=== PATIENT | female | born 2005 | race Caucasian/White ===

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

== ENCOUNTER 2023-08-21 10:12 | Emergency (ER) | payer OTHER ==
--- NOTE | 2023-08-21 10:44 | ED ---
Lower Extremity Injury HPI - General Chief Complaint: Extremity Injury, Lower Stated Complaint: right foot pain Time Seen by Provider: 08/21/23 10:27 Source: patient, RN notes reviewed Mode of arrival: wheelchair Limitations: no limitations - History of Present Illness Initial Comments: Patient is a 18-year-old female presented ER with chief complaint of right foot injury. Patient states she kicked a dumpster earlier today and his indoors pain since. Patient reports mild tingling in her toes. Patient states it is extremely painful to bear weight or walk. Patient denies any other injuries. - Related Data Previous Rx's Medication Instructions Recorded DULoxetine HCL [Cymbalta] 60 mg PO HS 30 Days #30 cap 06/15/23 Mirtazapine [Remeron] 30 mg PO HS 30 Days #60 tab 06/15/23 hydrOXYzine pamoate [Vistaril] 25 mg PO BID PRN 30 Days #60 cap 06/15/23 Allergies Allergy/AdvReac Type Severity Reaction Status Date / Time scopolamine Allergy Severe Unknown Verified 08/21/23 10:19 pentamidine isethionate Allergy Itching Verified 08/21/23 10:19 Review of Systems ROS Statement: Those systems with pertinent positive or pertinent negative responses have been documented in the HPI. ROS Other: All systems not noted in ROS Statement are negative. Past Medical History Past Medical History: Blood Disorder, Skin Disorder Additional Past Medical History / Comment(s): Hx Covid 10/13/21 with fever, body aches, chills, sore throat and cough. Hx frequent abdominal pain, IBS symptoms, less frequent recently. Eczema. 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 History of Any Multi-Drug Resistant Organisms: None Reported Past Surgical History: No Surgical Hx Reported Additional Past Surgical History / Comment(s): Bone Marrow Biopsy X4. Past Anesthesia/Blood Transfusion Reactions: No Reported Reaction, Motion Sickness Additional Past Anesthesia/Blood Transfusion Reaction / Comment(s): Hx platelet transfusions X2 in 2018, no problems. Past Psychological History: Anxiety, Depression Smoking Status: Never smoker Past Alcohol Use History: None Reported Past Drug Use History: None Reported - Past Family History Mother Family Medical History: No Reported History General Exam Limitations: no limitations General appearance: alert, in no apparent distress Respiratory exam: Present: normal lung sounds bilaterally. Absent: respiratory distress, wheezes, rales, rhonchi, stridor Cardiovascular Exam: Present: regular rate, normal rhythm, normal heart sounds. Absent: systolic murmur, diastolic murmur, rubs, gallop, clicks Extremities exam: Present: other (Edema noted to the right foot. No ecchymosis, erythema, or abrasions noted. tenderness to right 3 and 4 metatarsal. 2+ right dorsalis pedis pulse) Neurological exam: Present: alert, oriented X3, CN II-XII intact Psychiatric exam: Present: normal affect, normal mood Skin exam: Present: warm, dry, intact, normal color. Absent: rash Course Vital Signs 08/21/23 10:15 Temperature 98.4 F Pulse Rate 124 H Respiratory 18 Rate Blood Pressure 117/81 O2 Sat by Pulse 97 Oximetry Medical Decision Making - Medical Decision Making Was pt. sent in by a medical professional or institution (TERRIE Forrest, ANNUAL CAMPAIGN MANAGER, urgent care, hospital, or shelter...) When possible be specific @ -No Did you speak to anyone other than the patient for history (EMS, parent, family, police, friend...)? What history was obtained from this source @ -No Did you review nursing and triage notes (agree or disagree)? Why? @ -I reviewed and agree with nursing and triage notes Were old charts reviewed (outside hosp., previous admission, EMS record, old EKG, old radiological studies, urgent care reports/EKG's, shelter records)? Report findings @ -No old charts were reviewed Differential Diagnosis (chest pain, altered mental status, abdominal pain women, abdominal pain men, vaginal bleeding, weakness, fever, dyspnea, syncope, headache, dizziness, GI bleed, back pain, seizure, CVA, palpatations, mental health, musculoskeletal)? @ -Differential Musculoskeletal: Muscular strain, contusion, ligament sprain, fracture, arthritis, septic arthritis, bursitis, cellulitis, muscle spasm, nerve compression, DVT, arterial occlusion, herpes zoster, electrolyte abnormality, tumor.... This is not meant to be in all inclusive list EKG interpreted by me (3pts min.). @ -None X-rays interpreted by me (1pt min.). @ -Right foot x-ray shows no acute fractures or dislocations. CT interpreted by me (1pt min.). @ -None done U/S interpreted by me (1pt. min.). @ -None done What testing was considered but not performed or refused? (CT, X-rays, U/S, labs)? Why? @ -None What meds were considered but not given or refused? Why? @ -Yes I offered patient pain medications patient denied. Did you discuss the management of the patient with other professionals (professionals i.e. Dr., PA, ANNUAL CAMPAIGN MANAGER, lab, RT, psych nurse, oncology social work, ict sales representative, teacher, training and development officer, patient case manager)? Give summary @ -No Was smoking cessation discussed for >3mins.? @ -No Was critical care preformed (if so, how long)? @ -No Were there social determinants of health that impacted care today? How? (Homelessness, low income, unemployed, alcoholism, drug addiction, transportation, low edu. Level, literacy, decrease access to med. care, long term, rehab)? @ -No Was there de-escalation of care discussed even if they declined (Discuss DNR or withdrawal of care, Hospice)? DNR status @ -No What co-morbidities impacted this encounter? (DM, HTN, Smoking, COPD, CAD, Cancer, CVA, ARF, Chemo, Hep., AIDS, mental health diagnosis, sleep apnea, morbid obesity)? @ -None Was patient admitted / discharged? Hospital course, mention meds given and route , prescriptions, significant lab abnormalities, going to OR and other pertinent info. @ -Discharge. Patient is 18-year-old female presented ER chief complaint of right foot injury. On examination, patient tenderness to the third and fourth metatarsal with mild edema. There is no ecchymosis, erythema or abrasions noted. 2+ right dorsalis pedis pulse. X-ray of right foot showed no acute fractures or dislocations. Patient's foot will be wrapped with an David bandage upon discharge. I discussed with the patient to rest, ice, use compression, elevate foot. Return parameters were discussed. I advised patient to follow-up with orthopedics if symptoms persist longer than 7-10 days. Patient was discharged in stable condition with follow-up to PCP. She expressed understanding and agreement with care plan. Undiagnosed new problem with uncertain prognosis? @ -No Drug Therapy requiring intensive monitoring for toxicity (Heparin, Nitro, Insulin, Cardizem)? @ -No Were any procedures done? @ -No Diagnosis/symptom? @ -Right foot contusion Acute, or Chronic, or Acute on Chronic? @ -Acute Uncomplicated (without systemic symptoms) or Complicated (systemic symptoms)? @ -Uncomplicated Side effects of treatment? @ -No Exacerbation, Progression, or Severe Exacerbation? @ -No Poses a threat to life or bodily function? How? (Chest pain, [place], [place], pneumonia, PE, COPD, DKA, ARF, appy, cholecystitis, CVA, Diverticulitis, Homicidal, Suicidal, threat to staff... and all critical care pts) @ -No - Radiology Data Radiology results: report reviewed, image reviewed Disposition Clinical Impression: Contusion of right foot Disposition: HOME SELF-CARE Condition: Stable Instructions (If sedation given, give patient instructions): Foot Sprain (ED) Additional Instructions: Please return to the Emergency Department if symptoms worsen or any other concerns. Please use [id number] Tylenol and Motrin for pain control. Is patient prescribed a controlled substance at d/c from ED?: No Referrals: Joey Cordova MD [Primary Care Provider] - 1-2 days Yoel Vogel MD [STAFF PHYSICIAN] - 1-2 days Time of Disposition: 11:20
--- NOTE | 2023-08-21 10:57 | XR ---
EXAMINATION TYPE: XR foot complete RT DATE OF EXAM: 08/21/2023 COMPARISON: NONE HISTORY: Pain TECHNIQUE: Three views are submitted. FINDINGS: The osseous structures are intact. There is no acute fracture or dislocation. Joint spaces are p reserved. Chronic appearing deformity dorsal surface of the tarsal navicular. IMPRESSION: 1. No acute fracture or dislocation. If symptoms persist, follow-up exam in 7 to 10 days could be ob tained.
[2023-08-21 11:01] VITALS: RESP 18
[2023-08-21 11:51] VITALS: BP 115/79; PULSE 104; TEMP 98.1
== END 2023-08-21 11:41 | disposition home or self-care (01) ==
LOC: EC 10:12
DX: S90.31XA Contusion of right foot, initial encounter (principal); Z86.59 Personal history of other mental and behavioral disorders; W50.1XXA Accidental kick by another person, initial encounter
CPT/HCPCS: 99283

== ENCOUNTER 2023-09-27 10:19 | Emergency (ER) | payer OTHER ==
[2023-09-27 11:11] VITALS: BP 128/81; PULSE 98; RESP 18; TEMP 98.5
[2023-09-27] MEDS ORDERED: ACETAMINOPHEN TAB 325 MG TAB PO STA (11:19)
--- NOTE | 2023-09-27 11:24 | ED ---
General Adult HPI <Gayle Harrison - Last Filed: 09/27/23 15:12> - General Source: patient, RN notes reviewed Mode of arrival: ambulatory Limitations: no limitations <Kristen Barrett - Last Filed: 10/02/23 18:13> - General Chief complaint: Nausea/Vomiting/Diarrhea Stated complaint: chills and body aches Time Seen by Provider: 09/27/23 11:23 - History of Present Illness Initial comments: 18-year-old female presented ER with chief complaint of myalgias and chills. Patient states this going on for about a month. Patient denies any known fevers (Kristen Barrett) - Related Data Previous Rx's Medication Instructions Recorded DULoxetine HCL [Cymbalta] 60 mg PO HS 30 Days #30 cap 06/15/23 Mirtazapine [Remeron] 30 mg PO HS 30 Days #60 tab 06/15/23 hydrOXYzine pamoate [Vistaril] 25 mg PO BID PRN 30 Days #60 cap 06/15/23 Allergies Allergy/AdvReac Type Severity Reaction Status Date / Time scopolamine Allergy Severe Unknown Verified 09/27/23 10:56 pentamidine isethionate Allergy Itching Verified 09/27/23 10:56 Review of Systems ROS Other: All systems not noted in ROS Statement are negative. <Gayle Harrison - Last Filed: 09/27/23 15:12> ROS Other: All systems not noted in ROS Statement are negative. <Kristen Barrett - Last Filed: 10/02/23 18:13> ROS Statement: Those systems with pertinent positive or pertinent negative responses have been documented in the HPI. Past Medical History Past Medical History: Blood Disorder, Skin Disorder Additional Past Medical History / Comment(s): Hx Covid 10/13/21 with fever, body aches, chills, sore throat and cough. Hx frequent abdominal pain, IBS symptoms, less frequent recently. Eczema. 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 History of Any Multi-Drug Resistant Organisms: None Reported Past Surgical History: No Surgical Hx Reported Additional Past Surgical History / Comment(s): Bone Marrow Biopsy X4. Past Anesthesia/Blood Transfusion Reactions: No Reported Reaction, Motion Sickness Additional Past Anesthesia/Blood Transfusion Reaction / Comment(s): Hx platelet transfusions X2 in 2018, no problems. Past Psychological History: Anxiety, Depression Smoking Status: Never smoker Past Alcohol Use History: None Reported Past Drug Use History: None Reported - Past Family History Mother Family Medical History: No Reported History <Kristen Barrett - Last Filed: 10/02/23 18:13> General Exam Limitations: no limitations <Kristen Barrett - Last Filed: 10/02/23 18:13> - General Exam Comments Initial Comments: Visual Physical Exam Vital signs reviewed General: Well-appearing, nontoxic, no acute distress. Head: Normocephalic, atraumatic Eyes: PERRLA, EOMI ENT: Airway patent Chest: Nonlabored breathing Skin: No visual rash, normal skin tone Neuro: Alert and oriented 3 Musculoskeletal: No gross abnormalities (Kristen Barrett) Course Vital Signs 09/27/23 10:54 Temperature 98.5 F Pulse Rate 98 Respiratory 18 Rate Blood Pressure 128/81 O2 Sat by Pulse 98 Oximetry Medical Decision Making <Kristen Barrett - Last Filed: 10/02/23 18:13> - Medical Decision Making I performed the quick note portion of the exam. Electronically signed by Kristen Barrett PA-C (Kristen Barrett) - Lab Data Lab Results 09/27/23 09/27/23 09/27/23 Range/Units 11:24 11:24 11:24 Urine Color Yellow Urine Appearance Cloudy H (Clear) Urine pH 5.5 (5.0-8.0) Ur Specific [place] 1.028 (1.001-1.035) Urine Protein 1+ H (Negative) Urine Glucose (UA) Negative (Negative) Urine Ketones Trace H (Negative) Urine Blood Moderate H (Negative) Urine Nitrite Negative (Negative) Urine Bilirubin Negative (Negative) Urine Urobilinogen <2.0 (<2.0) mg/dL Ur Leukocyte Esterase Small H (Negative) Urine RBC 38 H (0-5) /hpf Urine WBC 6 H (0-5) /hpf Ur Squamous Epith Cells 15 H (0-4) /hpf Urine Bacteria Rare H (None) /hpf Urine Mucus Many H (None) /hpf Urine HCG, Qual Not Detected (Not Detectd) Influenza Type A (PCR) Not Detected (Not Detectd) Influenza Type B (PCR) Not Detected (Not Detectd) RSV (PCR) Not Detected (Not Detectd) SARS-CoV-2 (PCR) Not Detected (Not Detectd) Disposition <Gayle Harrison - Last Filed: 09/27/23 15:12> Time of Disposition: 18:13 <Kristen Barrett - Last Filed: 10/02/23 18:13> Clinical Impression: Left against medical advice Disposition: LEFT AGAINST MEDICAL ADVICE Condition: Undetermined Referrals: Joey Cordova MD [Primary Care Provider] - 1-2 days
[2023-09-27 11:31] LABS: Appearance,Urine Cloudy (Clear); Bacteria,Urine Rare /hpf; Bilirubin,Urine Negative (Negative); Blood,Urine Moderate (Negative); Color,Urine Yellow; Glucose,Urine (UA) Negative (Negative); Ketones,Urine Trace (Negative); Leukocyte Esterase,Urine Small (Negative); Mucus,Urine Many /hpf; Nitrite,Urine Negative (Negative); PH, Urine 5.5 (5.0-8.0); Protein,Urine 1+ (Negative); RBC,Urine 38 /hpf (0-5); Specific Gravity,Urine 1.028 (1.001-1.035); Squamous Epithelial Cell,Urine 15 /hpf (0-4); Urobilinogen,Urine <2.0 mg/dL (<2.0); WBC,Urine 6 /hpf (0-5)
== END 2023-09-27 15:09 | disposition left against medical advice (07) ==
LOC: EC 10:19
DX: R11.2 Nausea with vomiting, unspecified (principal); R68.83 Chills (without fever); M79.10 Myalgia, unspecified site; Z20.822 Contact with and (suspected) exposure to COVID-19; Z53.29 Procedure and treatment not carried out because of patient's decision for other reasons; Z88.8 Allergy status to other drugs, medicaments and biological substances; Z86.16 Personal history of COVID-19
CPT/HCPCS: 81001; 81025; 87636; 99283

== ENCOUNTER 2023-11-11 18:16 | Emergency (ER) | payer OTHER ==
[2023-11-11 18:24] VITALS: TEMP 98.2
--- NOTE | 2023-11-11 18:41 | ED ---
Nausea/Vomiting/Diarrhea HPI - General Chief complaint: Nausea/Vomiting/Diarrhea Stated complaint: N/V/D dizzy Time Seen by Provider: 11/11/23 18:40 Source: patient, RN notes reviewed Mode of arrival: ambulatory Limitations: no limitations - History of Present Illness Initial comments: Patient is a 18-year-old female presented to the ER with chief complaint of nausea and vomiting. Patient believes that she is about 4 weeks . Last menstrual cycle September 15, 2023. States for the past day states she is having increase in morning sickness and has not been able to keep anything down. She is worried she is dehydrated. Patient also is endorsing mild abdominal cramping and a creamy discharge. Patient has not followed up with [facility] yet. Denies any chest pain, shortness of breath, fevers, cough, congestion, urinary complaints, constipation/diarrhea. - Related Data Previous Rx's Medication Instructions Recorded DULoxetine HCL [Cymbalta] 60 mg PO HS 30 Days #30 cap 06/15/23 Mirtazapine [Remeron] 30 mg PO HS 30 Days #60 tab 06/15/23 hydrOXYzine pamoate [Vistaril] 25 mg PO BID PRN 30 Days #60 cap 06/15/23 Allergies Allergy/AdvReac Type Severity Reaction Status Date / Time scopolamine Allergy Severe Unknown Verified 11/11/23 18:20 pentamidine isethionate Allergy Itching Verified 11/11/23 18:20 Review of Systems ROS Statement: Those systems with pertinent positive or pertinent negative responses have been documented in the HPI. ROS Other: All systems not noted in ROS Statement are negative. Past Medical History Past Medical History: Blood Disorder, Skin Disorder Additional Past Medical History / Comment(s): Hx Covid 10/13/21 with fever, body aches, chills, sore throat and cough. Hx frequent abdominal pain, IBS symptoms, less frequent recently. Eczema. 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 History of Any Multi-Drug Resistant Organisms: None Reported Past Surgical History: No Surgical Hx Reported Additional Past Surgical History / Comment(s): Bone Marrow Biopsy X4. Past Anesthesia/Blood Transfusion Reactions: No Reported Reaction, Motion Sickness Additional Past Anesthesia/Blood Transfusion Reaction / Comment(s): Hx platelet transfusions X2 in 2018, no problems. Past Psychological History: Anxiety, Depression Smoking Status: Former smoker Past Alcohol Use History: None Reported Past Drug Use History: None Reported - Past Family History Mother Family Medical History: No Reported History General Exam Limitations: no limitations General appearance: alert, in no apparent distress Head exam: Present: atraumatic, normocephalic, normal inspection Eye exam: Present: normal appearance, PERRL, EOMI. Absent: scleral icterus, conjunctival injection, periorbital swelling Respiratory exam: Present: normal lung sounds bilaterally. Absent: respiratory distress, wheezes, rales, rhonchi, stridor Cardiovascular Exam: Present: regular rate, normal rhythm, normal heart sounds. Absent: systolic murmur, diastolic murmur, rubs, gallop, clicks GI/Abdominal exam: Present: soft, normal bowel sounds. Absent: distended, tenderness, guarding, rebound, rigid Neurological exam: Present: alert, oriented X3, CN II-XII intact Psychiatric exam: Present: normal affect, normal mood Skin exam: Present: warm, dry, intact, normal color. Absent: rash Course Vital Signs 11/11/23 11/11/23 18:17 18:56 Temperature 98.2 F Pulse Rate 78 81 Respiratory 18 20 Rate Blood Pressure 113/76 O2 Sat by Pulse 98 96 Oximetry Medical Decision Making - Medical Decision Making Was pt. sent in by a medical professional or institution ([facility], CHIEF CREDIT OFFICER, urgent care, hospital, or [facility]...) When possible be specific @ -No Did you speak to anyone other than the patient for history (EMS, parent, family, police, friend...)? What history was obtained from this source @ -No Did you review nursing and triage notes (agree or disagree)? Why? @ -I reviewed and agree with nursing and triage notes Were old charts reviewed (outside hosp., previous admission, EMS record, old EKG, old radiological studies, urgent care reports/EKG's, [facility] records)? Report findings @ -No old charts were reviewed Differential Diagnosis (chest pain, altered mental status, abdominal pain women, abdominal pain men, vaginal bleeding, weakness, fever, dyspnea, syncope, headache, dizziness, GI bleed, back pain, seizure, CVA, palpatations, mental health, musculoskeletal)? @ -Differential Abdominal Pain Women: Appendicitis, Cholecystitis, diverticulosis, ischemic bowel, pancreatitis, hepatitis, UTI, gastroenteritis, AAA, incarcerated hernia, bowel obstruction, constipation, inflammatory bowel, hepatitis, peptic ulcer disease, splenic infarction, perforated viscus, vulvitis, ovarian torsion, PID, kidney stone, placenta abruption, this is not meant to be an all-inclusive list EKG interpreted by me (3pts min.). @ -None X-rays interpreted by me (1pt min.). @ -None done CT interpreted by me (1pt min.). @ -None done U/S interpreted by me (1pt. min.). @ -Ultrasound significant for single IUP gestation approximately 7 weeks 2 da ys. There is also a subchorionic hemorrhage present. What testing was considered but not performed or refused? (CT, X-rays, U/S, labs)? Why? @ -None What meds were considered but not given or refused? Why? @ -None Did you discuss the management of the patient with other professionals (professionals i.e. , PA, CHIEF CREDIT OFFICER, lab, RT, psych nurse, social service agency director, operations intelligence superintendent, teacher, industrial relations officer, catalytic case operator)? Give summary @ -No Was smoking cessation discussed for >3mins.? @ -No Was critical care preformed (if so, how long)? @ -No Were there social determinants of health that impacted care today? How? (Homelessness, low income, unemployed, alcoholism, drug addiction, transportation, low edu. Level, literacy, decrease access to med. care, group home, rehab)? @ -No Was there de-escalation of care discussed even if they declined (Discuss DNR or withdrawal of care, Hospice)? DNR status @ -No What co-morbidities impacted this encounter? (DM, HTN, Smoking, COPD, CAD, Cancer, CVA, ARF, Chemo, Hep., AIDS, mental health diagnosis, sleep apnea, morbid obesity)? @ - Was patient admitted / discharged? Hospital course, mention meds given and route, prescriptions, significant lab abnormalities, going to OR and other pertinent info. @ -Discharge. Patient is a 18-year-old female presented to ER with chief complaint of nausea and vomiting. Patient is . History and physical exam were completed. Vitals stable. Labs obtained unremarkable. Serum hCG 74,245.9. Urine without signs of infection. Influenza, RSV, COVID-negative. Patient received 1 L of IV fluids and 5 mg of Reglan with improvement of symptoms. Ultrasound shows a single IUP measuring approximately 7 weeks 2 days. There is also a subchorionic hemorrhage present. Results discussed with patient, all questions answered. Advised her to follow-up with [facility] as soon as possible. Referral given. Patient given starter pack of Zofran for symptom control at home. Return parameters discussed. Patient discharged stable condition with follow-up to [facility]. Patient expressed understanding and agreement with care plan. Undiagnosed new problem with uncertain prognosis? @ -No Drug Therapy requiring intensive monitoring for toxicity (Heparin, Nitro, Insulin, Cardizem)? @ -No Were any procedures done? @ -No Diagnosis/symptom? @ -Nausea and vomiting/ Acute, or Chronic, or Acute on Chronic? @ -Acute Uncomplicated (without systemic symptoms) or Complicated (systemic symptoms)? @ -Uncomplicated Side effects of treatment? @ -No Exacerbation, Progression, or Severe Exacerbation? @ -No Poses a threat to life or bodily function? How? (Chest pain, USA, MS, pneumonia, PE, COPD, DKA, ARF, appy, cholecystitis, CVA, Diverticulitis, Homicidal, Suicidal, threat to staff... and all critical care pts) @ -No - Lab Data Result diagrams: 11/11/23 18:26 11/11/23 18:26 Lab Results 11/11/23 11/11/23 11/11/23 Range/Units 18:26 18:26 18:26 WBC 8.9 (4.0-11.0) k/uL RBC 4.04 (3.80-5.40) m/uL Hgb 13.4 (11.4-16.0) gm/dL Hct 39.9 (34.0-46.0) % MCV 98.9 (80.0-100.0) fL MCH 33.3 (25.0-35.0) pg MCHC 33.6 (31.0-37.0) g/dL RDW 13.8 (11.5-15.5) % Plt Count 207 (150-450) k/uL MPV 8.1 Neutrophils % 66 % Lymphocytes % 27 % Monocytes % 4 % Eosinophils % 2 % Basophils % 0 % Neutrophils # 5.9 (1.3-7.7) k/uL Lymphocytes # 2.4 (1.0-4.8) k/uL Monocytes # 0.3 (0-1.0) k/uL Eosinophils # 0.1 (0-0.7) k/uL Basophils # 0.0 (0-0.2) k/uL Sodium 137 (137-145) mmol/L Potassium 3.9 (3.5-5.1) mmol/L Chloride 105 (98-107) mmol/L Carbon Dioxide 23 (22-30) mmol/L Anion Gap 9 mmol/L BUN 8 (7-17) mg/dL Creatinine 0.60 (0.52-1.04) mg/dL Est GFR (CKD-EPI)AfAm >90 (>60 ml/min/1.73 sqM) Est GFR (CKD-EPI)NonAf >90 (>60 ml/min/1.73 sqM) Glucose 91 (74-99) mg/dL Calcium 9.7 (8.4-10.2) mg/dL Total Bilirubin 0.5 (0.2-1.3) mg/dL AST 45 H (14-36) U/L ALT 51 H (4-34) U/L Alkaline Phosphatase 70 (38-126) U/L Total Protein 7.3 (6.3-8.2) g/dL Albumin 4.5 (3.5-5.0) g/dL HCG, Quant 52652.9 mIU/mL Urine Color Light Yellow Urine Appearance Cloudy H (Clear) Urine pH 6.0 (5.0-8.0) Ur Specific [place] 1.013 (1.001-1.035) Urine Protein Negative (Negative) Urine Glucose (UA) Negative (Negative) Urine Ketones Negative (Negative) Urine Blood Small H (Negative) Urine Nitrite Negative (Negative) Urine Bilirubin Negative (Negative) Urine Urobilinogen <2.0 (<2.0) mg/dL Ur Leukocyte Esterase Small H (Negative) Urine RBC 5 (0-5) /hpf Urine WBC 3 (0-5) /hpf Ur Squamous Epith Cells 15 H (0-4) /hpf Urine Bacteria Occasional H (None) /hpf Urine Mucus Few H (None) /hpf Influenza Type A (PCR) (Not Detectd) Influenza Type B (PCR) (Not Detectd) RSV (PCR) (Not Detectd) SARS-CoV-2 (PCR) (Not Detectd) 11/11/23 Range/Units 18:26 WBC (4.0-11.0) k/uL RBC (3.80-5.40) m/uL Hgb (11.4-16.0) gm/dL Hct (34.0-46.0) % MCV (80.0-100.0) fL MCH (25.0-35.0) pg MCHC (31.0-37.0) g/dL RDW (11.5-15.5) % Plt Count (150-450) k/uL MPV Neutrophils % % Lymphocytes % % Monocytes % % Eosinophils % % Basophils % % Neutrophils # (1.3-7.7) k/uL Lymphocytes # (1.0-4.8) k/uL Monocytes # (0-1.0) k/uL Eosinophils # (0-0.7) k/uL Basophils # (0-0.2) k/uL Sodium (137-145) mmol/L Potassium (3.5-5.1) mmol/L Chloride (98-107) mmol/L Carbon Dioxide (22-30) mmol/L Anion Gap mmol/L BUN (7-17) mg/dL Creatinine (0.52-1.04) mg/dL Est GFR (CKD-EPI)AfAm (>60 ml/min/1.73 sqM) Est GFR (CKD-EPI)NonAf (>60 ml/min/1.73 sqM) Glucose (74-99) mg/dL Calcium (8.4-10.2) mg/dL Total Bilirubin (0.2-1.3) mg/dL AST (14-36) U/L ALT (4-34) U/L Alkaline Phosphatase (38-126) U/L Total Protein (6.3-8.2) g/dL Albumin (3.5-5.0) g/dL HCG, Quant mIU/mL Urine Color Urine Appearance (Clear) Urine pH (5.0-8.0) Ur Specific [place] (1.001-1.035) Urine Protein (Negative) Urine Glucose (UA) (Negative) Urine Ketones (Negative) Urine Blood (Negative) Urine Nitrite (Negative) Urine Bilirubin (Negative) Urine Urobilinogen (<2.0) mg/dL Ur Leukocyte Esterase (Negative) Urine RBC (0-5) /hpf Urine WBC (0-5) /hpf Ur Squamous Epith Cells (0-4) /hpf Urine Bacteria (None) /hpf Urine Mucus (None) /hpf Influenza Type A (PCR) Not Detected (Not Detectd) Influenza Type B (PCR) Not Detected (Not Detectd) RSV (PCR) Not Detected (Not Detectd) SARS-CoV-2 (PCR) Not Detected (Not Detectd) - Radiology Data Radiology results: report reviewed, image reviewed Disposition Clinical Impression: , Nausea & vomiting Disposition: HOME SELF-CARE Condition: Stable Instructions (If sedation given, give patient instructions): Nausea and Vomiting in (ED) Additional Instructions: Please follow-up with [facility] in the next 1 to 2 days. Return to the ER for any new or worsening symptoms. Is patient prescribed a controlled substance at d/c from ED?: No Referrals: Joey Cordova MD [Primary Care Provider] - 1-2 days Alex Leonard MD [STAFF PHYSICIAN] - 1-2 days Time of Disposition: 22:05
[2023-11-11 18:45] LABS: Appearance,Urine Cloudy (Clear); Bacteria,Urine Occasional /hpf; Bilirubin,Urine Negative (Negative); Blood,Urine Small (Negative); Color,Urine Light Yellow; Glucose,Urine (UA) Negative (Negative); Ketones,Urine Negative (Negative); Leukocyte Esterase,Urine Small (Negative); Mucus,Urine Few /hpf; Nitrite,Urine Negative (Negative); Protein,Urine Negative (Negative); RBC,Urine 5 /hpf (0-5); Specific Gravity,Urine 1.013 (1.001-1.035); Squamous Epithelial Cell,Urine 15 /hpf (0-4); Urobilinogen,Urine <2.0 mg/dL (<2.0); WBC,Urine 3 /hpf (0-5)
[2023-11-11] MEDS: ONDANSETRON 4 MG/2 ML VIAL IVP STA (18:47)
[2023-11-11] MEDS: SODIUM CHLORIDE 0.9% 1,000 ML IV STA (18:49)
[2023-11-11] MEDS: METOCLOPRAMIDE 5 MG/ML 2 ML VIAL IVP STA (18:49)
[2023-11-11 18:57] LABS: Basophils % (A) 0 %; Eosinophils # (A) 0.1 k/uL (0-0.7); Eosinophils % (A) 2 %; HCT 39.9 % (34.0-46.0); HGB 13.4 gm/dL (11.4-16.0); Lymphocytes # (A) 2.4 k/uL (1.0-4.8); Lymphocytes % (A) 27 %; MCH 33.3 pg (25.0-35.0); MCHC 33.6 g/dL (31.0-37.0); MCV 98.9 fL (80.0-100.0); Mean Platelet Volume 8.1; Monocytes # (A) 0.3 k/uL (0-1.0); Monocytes % (A) 4 %; Neutrophils # (A) 5.9 k/uL (1.3-7.7); Neutrophils % (A) 66 %; Platelet Count 207 k/uL (150-450); RBC 4.04 m/uL (3.80-5.40); RDW 13.8 % (11.5-15.5); WBC 8.9 k/uL (4.0-11.0)
[2023-11-11 19:20] VITALS: BP 113/76; PULSE 81; RESP 20
[2023-11-11 19:20] LABS: ALT 51 U/L (4-34); AST 45 U/L (14-36); African American GFR (CKD) >90 (>60 ml/min/1.73 sqM); Albumin 4.5 g/dL (3.5-5.0); Alkaline Phosphatase 70 U/L (38-126); Anion Gap 9 mmol/L; Blood Urea Nitrogen 8 mg/dL (7-17); Calcium 9.7 mg/dL (8.4-10.2); Carbon Dioxide 23 mmol/L (22-30); Chloride 105 mmol/L (98-107); Glucose 91 mg/dL (74-99); Non-African American GFR(CKD) >90 (>60 ml/min/1.73 sqM); Potassium 3.9 mmol/L (3.5-5.1); Sodium 137 mmol/L (137-145); Total Bilirubin 0.5 mg/dL (0.2-1.3); Total Protein 7.3 g/dL (6.3-8.2)
[2023-11-11 20:58] LABS: HCG,Quantitative Serum 74245.9 mIU/mL
--- NOTE | 2023-11-11 21:52 | US ---
EXAMINATION TYPE: Transabdominal ultrasound OB <= 14 week fetus DATE OF EXAM: 11/11/2023 9:16 PM COMPARISON: NONE CLINICAL INDICATION: Female, 18 years old with history of abdominal cramping; cramping x 4 days. G1. EXAM PERFORMED: Transabdominal (TA) EXAM MEASUREMENTS: GESTATIONAL AGE / DATING Physician Established: Not yet established Dates by LMP: 09/15/23 (8 weeks/1 days) EDC: 06/21/24 Dates by First Scan: No previous this is first scan Dates by Current Scan for: (7 weeks/2 days) EDC: 06/27/24 MATERNAL ANATOMY Uterus: 8.7 x 6.4 x 4.5 CM Right Ovary: 2.4 x 2.1 x 1.3cm Left Ovary: 3.4 x 1.8 x 1.3cm Post CDS / Adnexa: wnl Presence of free fluid: No Presence of corpus luteal cyst: Not seen Presence of subchorionic hematoma: Yes measuring 1.3 x 0.9 x 1.1cm GESTATION / SURVEY CRL: 0.99cm (7 weeks/1 days) MSD: 2.62cm (7 weeks/2 days) Yolk Sac (normal less than 6mm): 3.5mm Heart Rate: 139 bpm Rhythm: Normal IUP: Viable IUP Date of LMP: 09/15/23 Beta HcG (if available): 74,295 Single live IUP seen measuring 7 weeks 2 days IMPRESSION: 1. Single live IUP seen measuring 7 weeks 2 days. EDC based on this exam 06/27/2024. 2. Small subchorionic hematoma, follow-up advised.
[2023-11-11] MEDS: ONDANSETRON 4 MG ODT STARTER PACK 2 TAB BTL PO STA (22:08)
== END 2023-11-11 22:14 | disposition home or self-care (01) ==
LOC: EC 18:16
DX: O21.9 Vomiting of pregnancy, unspecified (principal); O20.8 Other hemorrhage in early pregnancy; O99.341 Other mental disorders complicating pregnancy, first trimester; F32.A Depression, unspecified; F41.9 Anxiety disorder, unspecified; Z20.822 Contact with and (suspected) exposure to COVID-19; Z3A.01 Less than 8 weeks gestation of pregnancy; Z79.899 Other long term (current) drug therapy; Z86.16 Personal history of COVID-19; Z88.8 Allergy status to other drugs, medicaments and biological substances; Z87.891 Personal history of nicotine dependence
CPT/HCPCS: 36415; 80053; 85025; 81001; 84702; 87636; 76801; 99284; 96374; 96361; J2765; S0119

== ENCOUNTER 2023-11-18 16:56 | Emergency (ER) | payer OTHER ==
[2023-11-18] MEDS: ACETAMINOPHEN TAB 500 MG TAB PO STA (17:30)
[2023-11-18 17:31] VITALS: RESP 20; TEMP 98.2
[2023-11-18] MEDS: ONDANSETRON 4 MG/2 ML VIAL IVP STA (17:35)
[2023-11-18] MEDS: SODIUM CHLORIDE 0.9% 2,000 ML IV ONE (17:35)
--- NOTE | 2023-11-18 17:48 | ED ---
General Adult HPI - General Chief complaint: Abdominal Pain Stated complaint: Flank pain Time Seen by Provider: 11/18/23 17:01 Source: patient, EMS, RN notes reviewed Mode of arrival: EMS Limitations: no limitations - History of Present Illness Initial comments: 18-year-old G1, P0 female at 8 weeks gestation presents to the emergency department for evaluation of lower abdominal pain, bilateral flank pain. She states that this started around 3 to 4 hours ago. She notes that this is associated with vomiting. She notes that she has vomited 8-10 times in the past 3 hours. She reports that she has been vomiting frequently in the morning but not as persistent as this. Last bowel movement was today, minimal and loose. She admits to some dysuria and frequency. She denies hematuria, hematemesis. Denies fever, chills. Denies vaginal bleeding. - Related Data Previous Rx's Medication Instructions Recorded DULoxetine HCL [Cymbalta] 60 mg PO HS 30 Days #30 cap 06/15/23 Mirtazapine [Remeron] 30 mg PO HS 30 Days #60 tab 06/15/23 hydrOXYzine pamoate [Vistaril] 25 mg PO BID PRN 30 Days #60 cap 06/15/23 Cephalexin [Keflex] 500 mg PO Q12HR 10 Days #20 cap 11/18/23 Metoclopramide HCl [Reglan] 5 mg PO Q8HR PRN #15 tablet 11/18/23 Allergies Allergy/AdvReac Type Severity Reaction Status Date / Time scopolamine Allergy Severe Unknown Verified 11/11/23 18:20 pentamidine isethionate Allergy Itching Verified 11/11/23 18:20 Review of Systems ROS Statement: Those systems with pertinent positive or pertinent negative responses have been documented in the HPI. ROS Other: All systems not noted in ROS Statement are negative. Past Medical History Past Medical History: Blood Disorder, Skin Disorder Additional Past Medical History / Comment(s): Hx Covid 10/13/21 with fever, body aches, chills, sore throat and cough. Hx frequent abdominal pain, IBS symptoms, less frequent recently. Eczema. 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 History of Any Multi-Drug Resistant Organisms: None Reported Past Surgical History: No Surgical Hx Reported Additional Past Surgical History / Comment(s): Bone Marrow Biopsy X4. Past Anesthesia/Blood Transfusion Reactions: No Reported Reaction, Motion Sickness Additional Past Anesthesia/Blood Transfusion Reaction / Comment(s): Hx platelet transfusions X2 in 2018, no problems. Past Psychological History: Anxiety, Depression Smoking Status: Former smoker Past Alcohol Use History: None Reported Past Drug Use History: None Reported - Past Family History Mother Family Medical History: No Reported History General Exam Limitations: no limitations General appearance: alert, in distress Head exam: Present: atraumatic, normocephalic, normal inspection Eye exam: Present: normal appearance, PERRL, EOMI. Absent: scleral icterus, conjunctival injection, periorbital swelling ENT exam: Present: normal exam, mucous membranes moist Respiratory exam: Present: normal lung sounds bilaterally. Absent: respiratory distress, wheezes, rales, rhonchi, stridor Cardiovascular Exam: Present: regular rate, normal rhythm, normal heart sounds. Absent: systolic murmur, diastolic murmur, rubs, gallop, clicks GI/Abdominal exam: Present: soft, normal bowel sounds. Absent: distended, tenderness, guarding, rebound, rigid Extremities exam: Present: normal inspection, full ROM, normal capillary refill. Absent: tenderness, pedal edema, joint swelling, calf tenderness Back exam: Absent: CVA tenderness (R), CVA tenderness (L) Neurological exam: Present: alert, oriented X3 Psychiatric exam: Present: normal affect, normal mood Skin exam: Present: warm, dry, intact, normal color. Absent: rash Course Vital Signs 11/18/23 11/18/23 11/18/23 17:01 17:39 21:41 Temperature 98.2 F Pulse Rate 89 83 80 Respiratory 20 20 20 Rate Blood Pressure 130/91 140/83 132/74 O2 Sat by Pulse 100 99 100 Oximetry Medical Decision Making - Medical Decision Making Was pt. sent in by a medical professional or institution (, PA, SALES ENABLEMENT LEAD, urgent care, hospital, or residential...) When possible be specific @ -No Did you speak to anyone other than the patient for history (EMS, parent, family, police, friend...)? What history was obtained from this source @ -No Did you review nursing and triage notes (agree or disagree)? Why? @ -I reviewed and agree with nursing and triage notes Were old charts reviewed (outside hosp., previous admission, EMS record, old EKG, old radiological studies, urgent care reports/EKG's, residential records)? Report findings @ -No old charts were reviewed Differential Diagnosis (chest pain, altered mental status, abdominal pain women, abdominal pain men, vaginal bleeding, weakness, fever, dyspnea, syncope, head ache, dizziness, GI bleed, back pain, seizure, CVA, palpatations, mental health, musculoskeletal)? @ -Differential Abdominal Pain Women: Appendicitis, Cholecystitis, diverticulosis, ischemic bowel, pancreatitis, hepatitis, UTI, gastroenteritis, AAA, incarcerated hernia, bowel obstruction, constipation, inflammatory bowel, hepatitis, peptic ulcer disease, splenic infarction, perforated viscus, vulvitis, ovarian torsion, PID, kidney stone, placenta abruption, this is not meant to be an all-inclusive list EKG interpreted by me (3pts min.). @ -None X-rays interpreted by me (1pt min.). @ -None done CT interpreted by me (1pt min.). @ -None done U/S interpreted by me (1pt. min.). @ - ultrasound shows a live single live intrauterine , normal ovaries, mild vascularization of the appendix, compressible Renal, bladder ultrasound shows no acute process What testing was considered but not performed or refused? (CT, X-rays, U/S, labs)? Why? @ -None What meds were considered but not given or refused? Why? @ -None Did you discuss the management of the patient with other professionals (professionals i.e. , PA, SALES ENABLEMENT LEAD, lab, RT, psych nurse, social science professor, tax analyst, teacher, weapons electrical engineering officer, social work case manager)? Give summary @ -No Was smoking cessation discussed for >3mins.? @ -No Was critical care preformed (if so, how long)? @ -No Were there social determinants of health that impacted care today? How? (Homelessness, low income, unemployed, alcoholism, drug addiction, transporta tion, low edu. Level, literacy, decrease access to med. care, senior living, rehab)? @ -No Was there de-escalation of care discussed even if they declined (Discuss DNR or withdrawal of care, Hospice)? DNR status @ -No What co-morbidities impacted this encounter? (DM, HTN, Smoking, COPD, CAD, Cancer, CVA, ARF, Chemo, Hep., AIDS, mental health diagnosis, sleep apnea, morbid obesity)? @ -None Was patient admitted / discharged? Hospital course, mention meds given and route, prescriptions, significant lab abnormalities, going to OR and other pertinent info. @ -Discharged.Patient presented to the emergency department for evaluation of abdominal pain, flank pain, vomiting in . Laboratory studies obtained which show mild leukocytosis at 12.9 likely reactive to the patient's vomiting. Normal coagulation studies; CMP shows sodium 135, CO2 15, normal anion gap; quantitative hCG 123,798; UA shows cloudy urine, 2+ protein, 4+ ketones, moderate blood, large leukocyte Estrase, 43 WBCs. Patient was provided 2 L of normal saline in the emergency department. Patient given a dose of Zofran which did not help her symptoms. Patient then given Reglan and Benadryl which significantly improved her symptoms. Ultrasound was obtained of the fetus which showed a single live intrauterine , mild vasculature of the appendix but is compressible, no rebound tenderness. Patient is not tender to palpation in the right lower quadrant. Ultrasound of the kidneys, bladder showed no significant abnormality. Patient will be started on antibiotics for bacteriuria in . Patient will be discharged home. Patient to follow-up with CONTRACT PROCESS[facility]. Patient understanding agreeable with plan. Strict return precautions discussed. Patient stable at time of discharge. Case discussed with Dr. Geeta rothman Undiagnosed new problem with uncertain prognosis? @ -No Drug Therapy requiring intensive monitoring for toxicity (Heparin, Nitro, Insulin, Cardizem)? @ -No Were any procedures done? @ -No Diagnosis/symptom? @ -Abdominal pain in , UTI Acute, or Chronic, or Acute on Chronic? @ -Acute Uncomplicated (without systemic symptoms) or Complicated (systemic symptoms)? @ -Uncomplicated Side effects of treatment? @ -No Exacerbation, Progression, or Severe Exacerbation? @ -No Poses a threat to life or bodily function? How? (Chest pain, [place], [place], pneumonia, PE, COPD, DKA, ARF, appy, cholecystitis, CVA, Diverticulitis, Homicidal, Suicidal, threat to staff... and all critical care pts) @ -No - Lab Data Result diagrams: 11/18/23 17:42 11/18/23 17:42 Lab Results 11/18/23 11/18/23 11/18/23 Range/Units 17:42 17:42 17:42 WBC 12.9 H (4.0-11.0) k/uL RBC 3.73 L (3.80-5.40) m/uL Hgb 12.6 (11.4-16.0) gm/dL Hct 36.2 (34.0-46.0) % MCV 96.8 (80.0-100.0) fL MCH 33.7 (25.0-35.0) pg MCHC 34.9 (31.0-37.0) g/dL RDW 13.7 (11.5-15.5) % Plt Count 187 (150-450) k/uL MPV 8.2 Neutrophils % 86 % Lymphocytes % 9 % Monocytes % 3 % Eosinophils % 1 % Basophils % 0 % Neutrophils # 11.1 H (1.3-7.7) k/uL Lymphocytes # 1.2 (1.0-4.8) k/uL Monocytes # 0.4 (0-1.0) k/uL Eosinophils # 0.1 (0-0.7) k/uL Basophils # 0.0 (0-0.2) k/uL PT 11.8 (10.0-12.5) sec INR 1.1 (<1.2) APTT 22.3 (22.0-30.0) sec Sodium (137-145) mmol/L Potassium (3.5-5.1) mmol/L Chloride (98-107) mmol/L Carbon Dioxide (22-30) mmol/L Anion Gap mmol/L BUN (7-17) mg/dL Creatinine (0.52-1.04) mg/dL Est GFR (CKD-EPI)AfAm (>60 ml/min/1.73 sqM) Est GFR (CKD-EPI)NonAf (>60 ml/min/1.73 sqM) Glucose (74-99) mg/dL Calcium (8.4-10.2) mg/dL Total Bilirubin (0.2-1.3) mg/dL AST (14-36) U/L ALT (4-34) U/L Alkaline Phosphatase (38-126) U/L Total Protein (6.3-8.2) g/dL Albumin (3.5-5.0) g/dL HCG, Quant mIU/mL Urine Color Light Yellow Urine Appearance Cloudy H (Clear) Urine pH 6.0 (5.0-8.0) Ur Specific [place] 1.021 (1.001-1.035) Urine Protein 2+ H (Negative) Urine Glucose (UA) Negative (Negative) Urine Ketones 4+ H (Negative) Urine Blood Moderate H (Negative) Urine Nitrite Negative (Negative) Urine Bilirubin Negative (Negative) Urine Urobilinogen <2.0 (<2.0) mg/dL Ur Leukocyte Esterase Large H (Negative) Urine RBC 109 H (0-5) /hpf Urine WBC 43 H (0-5) /hpf Ur Squamous Epith Cells 17 H (0-4) /hpf Urine Bacteria Occasional H (None) /hpf Urine Mucus Few H (None) /hpf Blood Type Blood Type Recheck Bld Type Recheck Status 11/18/23 11/18/23 Range/Units 17:42 17:49 WBC (4.0-11.0) k/uL RBC (3.80-5.40) m/uL Hgb (11.4-16.0) gm/dL Hct (34.0-46.0) % MCV (80.0-100.0) fL MCH (25.0-35.0) pg MCHC (31.0-37.0) g/dL RDW (11.5-15.5) % Plt Count (150-450) k/uL MPV Neutrophils % % Lymphocytes % % Monocytes % % Eosinophils % % Basophils % % Neutrophils # (1.3-7.7) k/uL Lymphocytes # (1.0-4.8) k/uL Monocytes # (0-1.0) k/uL Eosinophils # (0-0.7) k/uL Basophils # (0-0.2) k/uL PT (10.0-12.5) sec INR (<1.2) APTT (22.0-30.0) sec Sodium 135 L (137-145) mmol/L Potassium 3.5 (3.5-5.1) mmol/L Chloride 108 H (98-107) mmol/L Carbon Dioxide 15 L (22-30) mmol/L Anion Gap 12 mmol/L BUN 4 L (7-17) mg/dL Creatinine 0.55 (0.52-1.04) mg/dL Est GFR (CKD-EPI)AfAm >90 (>60 ml/min/1.73 sqM) Est GFR (CKD-EPI)NonAf >90 (>60 ml/min/1.73 sqM) Glucose 96 (74-99) mg/dL Calcium 9.2 (8.4-10.2) mg/dL Total Bilirubin 0.6 (0.2-1.3) mg/dL AST 38 H (14-36) U/L ALT 107 H (4-34) U/L Alkaline Phosphatase 70 (38-126) U/L Total Protein 6.9 (6.3-8.2) g/dL Albumin 4.2 (3.5-5.0) g/dL HCG, Quant 443843.0 mIU/mL Urine Color Urine Appearance (Clear) Urine pH (5.0-8.0) Ur Specific [place] (1.001-1.035) Urine Protein (Negative) Urine Glucose (UA) (Negative) Urine Ketones (Negative) Urine Blood (Negative) Urine Nitrite (Negative) Urine Bilirubin (Negative) Urine Urobilinogen (<2.0) mg/dL Ur Leukocyte Esterase (Negative) Urine RBC (0-5) /hpf Urine WBC (0-5) /hpf Ur Squamous Epith Cells (0-4) /hpf Urine Bacteria (None) /hpf Urine Mucus (None) /hpf Blood Type O Negative Blood Type Recheck O Neg Bld Type Recheck Status No Disposition Clinical Impression: UTI (urinary tract infection), Abdominal pain affecting Disposition: HOME SELF-CARE Condition: Stable Instructions (If sedation given, give patient instructions): Abdominal Pain in (ED) Additional Instructions: Please follow up with [facility]. Return to the emergency department for new or worsening symptoms. Prescriptions: Cephalexin [Keflex] 500 mg PO Q12HR 10 Days #20 cap Metoclopramide HCl [Reglan] 5 mg PO Q8HR PRN #15 tablet PRN Reason: Nausea Is patient prescribed a controlled substance at d/c from ED?: No Referrals: Joey Cordova MD [Primary Care Provider] - 1-2 days Mabel Plascencia DO [Doctor of Osteopathic Medicine] - 1-2 days
[2023-11-18 18:09] LABS: Basophils % (A) 0 %; Eosinophils # (A) 0.1 k/uL (0-0.7); Eosinophils % (A) 1 %; HCT 36.2 % (34.0-46.0); HGB 12.6 gm/dL (11.4-16.0); Lymphocytes # (A) 1.2 k/uL (1.0-4.8); Lymphocytes % (A) 9 %; MCH 33.7 pg (25.0-35.0); MCHC 34.9 g/dL (31.0-37.0); MCV 96.8 fL (80.0-100.0); Mean Platelet Volume 8.2; Monocytes # (A) 0.4 k/uL (0-1.0); Monocytes % (A) 3 %; Neutrophils # (A) 11.1 k/uL (1.3-7.7); Neutrophils % (A) 86 %; Platelet Count 187 k/uL (150-450); RBC 3.73 m/uL (3.80-5.40); RDW 13.7 % (11.5-15.5); WBC 12.9 k/uL (4.0-11.0)
[2023-11-18 18:25] LABS: INR 1.1 (<1.2); Partial Thromboplastin Time 22.3 sec (22.0-30.0); Prothrombin Time 11.8 sec (10.0-12.5)
[2023-11-18 18:30] LABS: ALT 107 U/L (4-34); AST 38 U/L (14-36); African American GFR (CKD) >90 (>60 ml/min/1.73 sqM); Albumin 4.2 g/dL (3.5-5.0); Alkaline Phosphatase 70 U/L (38-126); Anion Gap 12 mmol/L; Blood Urea Nitrogen 4 mg/dL (7-17); Calcium 9.2 mg/dL (8.4-10.2); Carbon Dioxide 15 mmol/L (22-30); Chloride 108 mmol/L (98-107); Glucose 96 mg/dL (74-99); Non-African American GFR(CKD) >90 (>60 ml/min/1.73 sqM); Potassium 3.5 mmol/L (3.5-5.1); Sodium 135 mmol/L (137-145); Total Bilirubin 0.6 mg/dL (0.2-1.3); Total Protein 6.9 g/dL (6.3-8.2)
[2023-11-18 18:42] LABS: Appearance,Urine Cloudy (Clear); Bacteria,Urine Occasional /hpf; Bilirubin,Urine Negative (Negative); Blood,Urine Moderate (Negative); Color,Urine Light Yellow; Glucose,Urine (UA) Negative (Negative); Leukocyte Esterase,Urine Large (Negative); Mucus,Urine Few /hpf; Nitrite,Urine Negative (Negative); Protein,Urine 2+ (Negative); RBC,Urine 109 /hpf (0-5); Specific Gravity,Urine 1.021 (1.001-1.035); Squamous Epithelial Cell,Urine 17 /hpf (0-4); Urobilinogen,Urine <2.0 mg/dL (<2.0); WBC,Urine 43 /hpf (0-5)
[2023-11-18] MEDS: METOCLOPRAMIDE 5 MG/ML 2 ML VIAL IVP STA (19:02)
[2023-11-18] MEDS: diphenhydrAMINE 50 MG/ML 1 ML VIAL IVP STA (19:02)
[2023-11-18 19:06] LABS: Ketones,Urine 4+ (Negative)
--- NOTE | 2023-11-18 19:25 | US ---
EXAMINATION TYPE: US kidneys/renal and bladder DATE OF EXAM: 11/18/2023 COMPARISON: NONE CLINICAL INDICATION: Female, 18 years old with history of flank pain, preg; Generalized abd pain EXAM MEASUREMENTS: Right Kidney: 11.1 x 4.9 x 4.6 cm Left Kidney: 9.1 x 4.8 x 4.7 cm Right Kidney: No hydronephrosis or masses seen Left Kidney: No hydronephrosis or masses seen Bladder: Mostly empty, appears wnl Bilateral Jets seen: No There is no evidence for hydronephrosis at this point in time. No nephrolithiasis is seen. No adeline s are identified. The urinary bladder is anechoic. Bilateral ureteral jets are seen. IMPRESSION: No significant abnormality appreciated
--- NOTE | 2023-11-18 19:26 | US ---
EXAMINATION TYPE: Transabdominal DATE OF EXAM: 11/18/2023 6:36 PM COMPARISON: 11/11/23 CLINICAL INDICATION: Female, 18 years old with history of flank pain, preg; generalized abd pain x 3 hours EXAM PERFORMED: Transabdominal (TA) EXAM MEASUREMENTS: GESTATIONAL AGE / DATING Physician Established: (8 weeks/2 days) EDC: 06/27/24 Dates by LMP: (9 weeks/1 days) EDC: 06/21/24 Dates by First Scan: (8 weeks/2 days) EDC: 06/27/24 Dates by Current Scan for: (8 weeks/3 days) EDC: 06/26/24 MATERNAL ANATOMY Uterus: 8.8 x 6.5 x 4.7cm Right Ovary: 3.0 x 2.7 x 2.2cm Left Ovary: 2.7 x 1.8 x 1.7cm Post CDS / Adnexa: Compressible appendix seen in RLQ Presence of free fluid: No Presence of corpus luteal cyst: Not seen Presence of subchorionic bleed: No GESTATION / SURVEY CRL: 1.94cm (8 weeks/3 days) MSD: Not measured, appears wnl Yolk Sac (normal less than 6mm): 3.8mm Heart Rate: 175 bpm Rhythm: Normal IUP: Viable IUP Date of LMP: 09/15/23 Beta HcG (if available): N/A Single live IUP seen measuring 8 weeks 3 days. Appendix seen in right adnexa with some vascularity an d possible fat surrounding it (image 39), however it is compressible and no rebound tenderness noted. IMPRESSION: 1. Single viable intrauterine as noted above.
[2023-11-18 21:58] VITALS: BP 132/74; PULSE 80
== END 2023-11-18 21:42 | disposition home or self-care (01) ==
LOC: EC 16:56
DX: O23.41 Unspecified infection of urinary tract in pregnancy, first trimester (principal); N39.0 Urinary tract infection, site not specified; O99.331 Smoking (tobacco) complicating pregnancy, first trimester; Z88.8 Allergy status to other drugs, medicaments and biological substances; Z87.891 Personal history of nicotine dependence; Z86.59 Personal history of other mental and behavioral disorders; Z86.16 Personal history of COVID-19; Z3A.08 8 weeks gestation of pregnancy
CPT/HCPCS: 36415; 86900; 86901; 80053; 85025; 85610; 85730; 81001; 84702; 87086; 76801; 76770; 99284; 96374; 96375 ×2; 96361 ×2; J1200; J2765; J2405